=== PATIENT | female | born 1945 | race Caucasian/White ===

== ENCOUNTER → 2025-06-25 14:45 | Outpatient (REF) | payer OTHER, SELFPAY | LOC: RAD 14:45 | PROVIDERS: ATTENDING PHYSICIAN Nurse Practitioner Family; FAMILY PHYSICIAN Family Medicine | DX: M79.641 Pain in right hand (principal); M79.642 Pain in left hand; M25.551 Pain in right hip; M25.512 Pain in left shoulder | CPT/HCPCS: 73030; 73130; 73502 ==